=== PATIENT | male | born 1990 | race Caucasian/White ===

== ENCOUNTER 2016-12-05 16:06 | Outpatient (CLI) | payer OTHER, MEDICAID ==
--- NOTE | 2016-12-05 17:52 | XRAY Preliminary Report ---
Exam: XR Foot 3 View LT IMPRESSION: Soft tissue swelling. [facility] SITE ID: [id number]
--- NOTE | 2016-12-05 17:54 | XRAY Report ---
EXAM: LEFT FOOT RADIOGRAPHY EXAM DATE: 12/05/2016 04:47 PM. CLINICAL HISTORY: LT GREAT TOE PAIN W/SWELLING,ANTOLGIC GAIT. COMPARISON: 06/30/2015. TECHNIQUE: 3 views. FINDINGS: Bones: Normal. No fractures or bone lesions. Joints: Mild hallux valgus. Joint spaces well-preserved. No erosions. Soft Tissues: Mild soft tissue swelling. IMPRESSION: Soft tissue swelling. [facility] Referring Provider Line: [phone] SITE ID: [id number]
== END 2016-12-05 16:07 | disposition home or self-care (01) ==
LOC: DI 16:06
PROVIDERS: ATTEND Emergency Medicine
DX: M79.89 Other specified soft tissue disorders (principal)

== ENCOUNTER 2019-08-10 08:20 | Emergency (ER) | payer MEDICAID ==
[2019-08-10 08:29] VITALS: BP 155/71
[2019-08-10] MEDS ORDERED: BUFFERED LIDOCAINE 10 ML SYRINGE SUBQ STA (08:38)
--- NOTE | 2019-08-10 08:41 | ED Physician Documentation ---
PD HPI SKIN - Stated complaint Stated Complaint: LT LEG PX - Chief complaint Chief Complaint: Wound - History obtained from History obtained from: Patient - Additional information Additional information: Patient comes emergency department complaining of a lesion on his left lateral thigh. He states that this is been there for approximately the last 6 days and that he has been trying to hot pack and get it to drain on its own, but it just has not gone away. Patient has not yet been on antibiotics. He states the area of redness is grown slightly. No fevers. He has had mild drainage from the ar ea that appears purulent. No other complaints at this time. Review of Systems Ten Systems: 10 systems reviewed and negative Constitutional: reports: Reviewed and negative Eyes: reports: Reviewed and negative Ears: reports: Reviewed and negative Nose: reports: Reviewed and negative Throat: reports: Reviewed and negative Cardiac: reports: Reviewed and negative Respiratory: reports: Reviewed and negative GI: reports: Reviewed and negative : reports: Reviewed and negative Skin: reports: Other (Infected appearing area on patient's left thigh, possible abscess.) Musculoskeletal: reports: Reviewed and negative Neurologic: reports: Reviewed and negative Psychiatric: reports: Reviewed and negative Endocrine: reports: Reviewed and negative Immunocompromised: reports: Reviewed and negative PD PAST MEDICAL HISTORY - Past Medical History Cardiovascular: None Respiratory: None Endocrine/Autoimmune: None GI: Ulcers, Diverticulitis Psych: Depression, Anxiety Musculoskeletal: None - Past Surgical History Past Surgical History: Yes General: Appendectomy - Present Medications Home Medications: Ambulatory Orders Medication Instructions Recorded Confirmed Hydrocortisone Acetate [Anucort-Hc] 25 mg RC BID PRN #20 supp.rect 08/25/15 Hydrocodone/Acetaminophen 1 - 2 each PO Q6H PRN #14 tablet 01/16/16 [Hydrocodon-Acetaminophen 5-325] Lidocaine Patch 5% [Lidoderm Patch] 1 patch TOP DAILY PRN #10 patch 01/16/16 Sulfamethox/Trimeth 800/160 1 each PO BID #14 tablet 08/10/19 [Bactrim Ds 800/160] - Allergies Allergies/Adverse Reactions: Allergies Allergy/AdvReac Type Severity Reaction Status Date / Time No Known Drug Allergies Allergy Verified 08/10/19 08:28 - Social History Does the pt smoke?: Yes Smoking Status: Current every day smoker Does the pt drink ETOH?: Yes Does the pt have substance abuse?: Yes - Immunizations Immunizations are current?: Yes Immunizations: No immun - POLST Patient has POLST: No PD ED PE NORMAL - General General: Alert and oriented X 3, No acute distress, Well developed/nourished - HEENT HEENT: Atraumatic, PERRL, EOMI, Moist mucous membranes - Neck Neck: Supple, no meningeal sign - Respiratory Respiratory: No respiratory distress - Derm Derm: Other (Patient has an approximately 4 cm diameter area of redness on his left mid lateral thigh. There is mild edema and moderate induration associated. Patient has an area of skin breakage at the apex, from which can be expressed a thick, hemo-purulent fluid.) - Extremities Extremities: No deformity - Neuro Neuro: Alert and oriented X 3 - Psych Psych: Normal mood, Normal affect Results - Vitals Vitals: Oxygen O2 Source Room air Procedures - Abscess I&D (location) R thigh Preparation: Chlorhexadine, Lidocaine 1%, With epi Incision: Incised with scalpel, Purulent drainage (small), Irrigated, Packed Other: Pt tolerated well, Dressing applied, Antibiotic prescribed PD MEDICAL DECISION MAKING - ED course Complexity details: considered differential, d/w patient ED course: I&D performed, as above. We have discussed wound care at home, as well as the need for wound check and packing removal/change in 2 days, as well as the usual indications for return. Departure - Departure Disposition: 01 Home, Self Care Clinical Impression: Abscess Condition: Stable Instructions: ED Abscess IandD Prescriptions: Sulfamethox/Trimeth 800/160 [Bactrim Ds 800/160] 1 each PO BID #14 tablet Comments: Your wound is been drained and packed today. Please take the antibiotics as directed, until gone. The packing should be removed in 2 days, and will need to be replaced if the wound edges do not stay apart on their own. Otherwise, at that time, the wound may be left open and unpacked. However, you should put a breathable dressing on the wound until the wound dries and scabs over. Discharge Date/Time: 08/10/19 09:23
[2019-08-10] MEDS ORDERED: SULFAMETH/TRIMETH DS 800/160 MG TABLET PO STA (09:04)
== END 2019-08-10 09:23 | disposition home or self-care (01) ==
LOC: ED 08:20
DX: L02.416 Cutaneous abscess of left lower limb (principal); F17.200 Nicotine dependence, unspecified, uncomplicated
CPT/HCPCS: 10061; 99282; 99284; A9270

== ENCOUNTER 2020-07-08 12:05 | Emergency (ER) | payer MEDICAID ==
[2020-07-08 12:28] VITALS: BP 159/82
--- OUTSIDE RECORDS SUMMARY | 2020-07-08 12:30 | EXTERNAL MEDICAL SUMMARY RPT | Continuity of Care Document ---
:1990 Demographics Phone Unavailable Preferred Language Unknown Marital Status Unknown Shinto Affiliation Unknown Race Unknown Ethnic Group Unknown Author Organization [facility] Address [address] [phone] Phone Social History date description facility [phone]
--- NOTE | 2020-07-08 12:53 | XRAY Report ---
PROCEDURE: Finger(s) LT INDICATIONS: trauma TECHNIQUE: AP hand, 2 views of the second finger(s) acquired. COMPARISON: None FINDINGS: Bones: No fractures or dislocations. No suspicious bony lesions. Soft tissues: No suspicious soft tissue calcifications. IMPRESSION: No acute second finger fracture or dislocation. Reviewed by: Galo Rosa MD on 07/08/2020 12:52 PM PDT Approved by: Galo Rosa MD on 07/08/2020 12:52 PM PDT Station ID: [id number]
[2020-07-08] MEDS ORDERED: BUFFERED LIDOCAINE 10 ML SYRINGE SUBQ STA (13:06)
--- NOTE | 2020-07-08 13:09 | ED Physician Documentation ---
PD HPI UPPER EXT INJURY - Stated complaint Stated Complaint: L INDEX FINGER INJ - Chief complaint Chief Complaint: Trauma Ext - History obtained from History obtained from: Patient - Additonal information Additional information: Right-handed gentleman got his left second finger caught between 2 pieces of metal while working home yesterday with increasing pain overnight. Review of Systems Constitutional: reports: Reviewed and negative Throat: reports: Reviewed and negative Cardiac: reports: Reviewed and negative PD PAST MEDICAL HISTORY - Past Medical History Cardiovascular: None Respiratory: None Endocrine/Autoimmune: None GI: Ulcers, Diverticulitis Psych: Depression, Anxiety Musculoskeletal: None - Past Surgical History Past Surgical History: Yes General: Appendectomy - Present Medications Home Medications: Ambulatory Orders Medication Instructions Recorded Confirmed Hydrocortisone Acetate [Anucort-Hc] 25 mg RC BID PRN #20 supp.rect 08/25/15 Hydrocodone/Acetaminophen 1 - 2 each PO Q6H PRN #14 tablet 01/16/16 [Hydrocodon-Acetaminophen 5-325] Lidocaine Patch 5% [Lidoderm Patch] 1 patch TOP DAILY PRN #10 patch 01/16/16 Sulfamethox/Trimeth 800/160 1 each PO BID #14 tablet 08/10/19 [Bactrim Ds 800/160] - Allergies Allergies/Adverse Reactions: Allergies Allergy/AdvReac Type Severity Reaction Status Date / Time No Known Drug Allergies Allergy Verified 07/08/20 12:27 - Social History Does the pt smoke?: Yes Smoking Status: Current some day smoker Does the pt drink ETOH?: Yes Does the pt have substance abuse?: Yes - Immunizations Immunizations are current?: Yes Immunizations: No immun - POLST Patient has POLST: No PD ED PE NORMAL - Vitals Vital signs reviewed: Yes - General General: Alert and oriented X 3, No acute distress - HEENT HEENT: PERRL, EOMI - Extremities Extremities: Other (Tender at the tip of the left second finger with just greater than 50% subungual hematoma) - Neuro Neuro: Alert and oriented X 3, Normal speech Results - Vitals Vitals: Vital Signs - 24 hr 07/08/20 12:23 Temperature 36.0 C L Heart Rate 68 Respiratory 16 Rate Blood Pressure 159/82 H O2 Saturation 100 Oxygen O2 Source Room air - Rads (name of study) L 2nd finger Radiology: EMP read contemporaneously (no frx) Procedures - General procedure General procedure: After verbal informed consent a digital block was done in standard fashion of the left second finger with 2 mL of buffered lidocaine. After several minutes with excellent anesthesia, the proximal nail was trephinated using electrocautery with release of blood. Departure - Departure Disposition: 01 Home, Self Care Clinical Impression: Crushing injury of finger of left hand Subungual hematoma of digit of hand Qualifiers: Encounter type: initial encounter Qualified Code(s): S60.10XA - Contusion of unspecified finger with damage to nail, initial encounter Condition: Stable Record reviewed to determine appropriate education?: Yes Instructions: ED Hematoma Subungual
== END 2020-07-08 13:43 | disposition home or self-care (01) ==
LOC: ED 12:05
DX: S60.10XA Contusion of unspecified finger with damage to nail, initial encounter (principal); W23.1XXA Caught, crushed, jammed, or pinched between stationary objects, initial encounter; Y92.009 Unspecified place in unspecified non-institutional (private) residence as the place of occurrence of the external cause; F17.200 Nicotine dependence, unspecified, uncomplicated
CPT/HCPCS: 11740; 99282; 99283

== ENCOUNTER 2020-11-15 15:34 | Outpatient (CLI) | payer MEDICAID ==
--- NOTE | 2020-11-15 16:24 | XRAY Report ---
PROCEDURE: Knee 3 View LT INDICATIONS: SPRAIN OF L KNEE TECHNIQUE: 3 views of the left knee(s) were acquired. COMPARISON: None. FINDINGS: Bones: No fractures or dislocations. No suspicious bony lesions. Soft tissues: No joint effusion. No suspicious soft tissue calcifications. IMPRESSION: No left knee fracture or dislocation. No significant joint effusion. Reviewed by: Galo Rosa MD on 11/15/2020 4:22 PM PDT Approved by: Galo Rosa MD on 11/15/2020 4:22 PM PDT Station ID: [id number]
== END 2020-11-15 23:59 | disposition home or self-care (01) ==
LOC: DI.N 15:34
PROVIDERS: ATTEND Nurse Practitioner
DX: S83.92XA Sprain of unspecified site of left knee, initial encounter (principal)

== ENCOUNTER 2021-12-13 16:57 | Emergency (ER) | payer MEDICAID, OTHER ==
[2021-12-13] MEDS ORDERED: KETOROLAC 60 MG/2 ML VIAL IM STA (18:07)
[2021-12-13] MEDS ORDERED: CYCLOBENZAPRINE 10 MG TABLET PO STA (18:07)
[2021-12-13] MEDS ORDERED: DEXAMETHASONE 10 MG/ML VIAL PO STA (18:07)
[2021-12-13] MEDS ORDERED: CHERRY SYRUP 10 ML UDC PO ONE (18:07)
[2021-12-13] MEDS ORDERED: GABAPENTIN 100 MG CAPSULE PO STA (18:07)
--- NOTE | 2021-12-13 18:11 | ED Physician Documentation ---
PD HPI BACK PAIN - Stated complaint Stated Complaint: LOWER BACK PX - Chief complaint Chief Complaint: Back Pain - History obtained from History obtained from: Patient - History of Present Illness Pain level max: 8 Pain level now: 8 Location: Lower, Left Quality: Pain, Spasm, Similar to prior episodes Associated symptoms: No: Fever, Weakness, Numbness, Incontinent of urine, Unable to urinate, Hematuria, Incontinent of stool Improves with: Rest Worsened by: Movement - Additional information Additional information: Patient is a 31-year-old male who complains of low back pain. He states he was bending over today when he felt a pop in his low back. Since that time has had increasing pain. Worse with movement, better with rest. Has had similar symptoms previously. No loss of bowel or bladder control. Did not take anything for the pain. The pain is nonradiating. No numbness or tingling. Review of Systems Constitutional: denies: Fever, Chills Respiratory: denies: Cough GI: denies: Vomiting, Diarrhea : denies: Incontinent Skin: denies: Rash Musculoskeletal: denies: Neck pain Neurologic: denies: Focal weakness, Numbness PD PAST MEDICAL HISTORY - Past Medical History Cardiovascular: None Respiratory: None Endocrine/Autoimmune: None GI: Ulcers, Diverticulitis Psych: Depression, Anxiety Musculoskeletal: None - Past Surgical History Past Surgical History: Yes General: Appendectomy - Present Medications Home Medications: Ambulatory Orders Medication Instructions Recorded Confirmed Hydrocortisone Acetate [Anucort-Hc] 25 mg RC BID PRN #20 supp.rect 08/25/15 Hydrocodone/Acetaminophen 1 - 2 each PO Q6H PRN #14 tablet 01/16/16 [Hydrocodon-Acetaminophen 5-325] Lidocaine Patch 5% [Lidoderm Patch] 1 patch TOP DAILY PRN #10 patch 01/16/16 Sulfamethox/Trimeth 800/160 1 each PO BID #14 tablet 08/10/19 [Bactrim Ds 800/160] Cyclobenzaprine [Flexeril] 10 mg PO TID PRN #20 tablet 12/13/21 Gabapentin [Neurontin] 300 mg PO TID #30 cap 12/13/21 Meloxicam [Mobic] 7.5 mg PO BID PRN #20 tablet 12/13/21 - Allergies Allergies/Adverse Reactions: Allergies Allergy/AdvReac Type Severity Reaction Status Date / Time No Known Drug Allergies Allergy Verified 12/13/21 17:06 - Social History Does the pt smoke?: Yes Smoking Status: Current some day smoker Does the pt drink ETOH?: Yes Does the pt have substance abuse?: Yes - Immunizations Immunizations are current?: Yes Immunizations: No immun - POLST Patient has POLST: No PD ED PE NORMAL - Vitals Vital signs reviewed: Yes - General General: Alert and oriented X 3, No acute distress - HEENT HEENT: Moist mucous membranes - Neck Neck: Supple, no meningeal sign - Cardiac Cardiac: RRR - Respiratory Respiratory: No respiratory distress, Clear bilaterally - Abdomen Abdomen: Soft, Non tender, Non distended - Back Back: No spinal TTP, Other (No midline tenderness to palpation or percussion. paraspinal spasm left lower lumbar.) - Derm Derm: Warm and dry - Extremities Extremities: No edema - Neuro Neuro: Alert and oriented X 3, No motor deficit, No sensory deficit, Other (Normal bilateral lower extremity patellar and ankle jerk reflexes. Normal great toe extension bilaterally. no saddle anesthesia) - Psych Psych: Normal mood, Normal affect Results - Vitals Vitals: Vital Signs - 24 hr 12/13/21 12/13/21 17:02 19:24 Temperature 36.1 C L Heart Rate 102 H 80 Respiratory 16 18 Rate Blood Pressure 129/78 123/66 O2 Saturation 100 100 Oxygen O2 Source Room air PD MEDICAL DECISION MAKING - ED course Complexity details: re-evaluated patient, considered differential (No cauda equina, no spinal epidural abscess, no fracture, no aortic dissection or evidence of aneursym rupture), d/w patient ED course: 31-year-old male with what appears to be musculoskeletal back pain. Likely nerve irritation causing spasm. We will place on anti-inflammatories and muscle relaxants for home. He wants to avoid narcotic pain medication. No evidence of cauda equina, epidural abscess, fracture. We will hold off on neuroimaging at this time. No indication for emergent imaging. Patient is ambulating well. No focal neurological deficits. Patient counseled regarding signs and symptoms for which I believe and urgent re-evaluation would be necessary. Patient with good understanding of and agreement to plan and is comfortable going home at this time This document was made in part using voice recognition software. While efforts are made to proofread this document, sound alike and grammatical errors may occur. Departure - Departure Disposition: Home, Self Care Clinical Impression: Back spasm Condition: Good Instructions: ED Spasm Back No Trauma Follow-Up: [facility] [place] [Provider Group] [facility] [place] [Provider Group] Primary[facility]Walk In [place] [Provider Group] Walk In [facility] [Provider Group] Prescriptions: Cyclobenzaprine [Flexeril] 10 mg PO TID PRN #20 tablet PRN Reason: Spasms Meloxicam [Mobic] 7.5 mg PO BID PRN #20 tablet PRN Reason: Pain Gabapentin [Neurontin] 300 mg PO TID #30 cap Comments: Your prescriptions were sent to [facility] in [place]. Please follow-up with your doctor for further care. Continue to gently stretch your back at home. Return if you worsen. Forms: Activity restrictions Discharge Date/Time: 12/13/21 19:25
[2021-12-13 19:25] VITALS: BP 123/66
== END 2021-12-13 19:25 | disposition home or self-care (01) ==
LOC: ED 16:57
DX: M62.830 Muscle spasm of back (principal); F17.200 Nicotine dependence, unspecified, uncomplicated
CPT/HCPCS: 96372; 99282; 99283; A9270

== ENCOUNTER 2022-04-23 16:00 | Outpatient (CLI) | payer MEDICAID ==
[2022-04-23 21:48] LABS: BASOPHILS # (AUTO) 0.1 10^3/uL (0.0-0.1); BASOPHILS % (AUTO) 0.5 %; EOSINOPHILS # (AUTO) 0.2 10^3/uL (0.0-0.7); EOSINOPHILS % (AUTO) 2.1 %; HCT - HEMATOCRIT 44.1 % (42.0-52.0); HGB - HEMOGLOBIN 14.6 g/dL (14.0-18.0); LYMPHOCYTES # (AUTO) 3.6 10^3/uL (1.5-3.5); LYMPHOCYTES % (AUTO) 35.9 %; MEAN CORPUSCULAR HEMOGLOBIN 28.8 pg (27.0-31.0); MEAN CORPUSCULAR HGB CONC 33.1 g/dL (32.0-36.0); MEAN PLATELET VOLUME 9.8 fL (7.4-11.4); MONOCYTES # (AUTO) 0.7 10^3/uL (0.0-1.0); MONOCYTES % (AUTO) 6.5 %; NEUTROPHILS # (AUTO) 5.4 10^3/uL (1.5-6.6); NEUTROPHILS % (AUTO) 54.7 %; PLT - PLATELET COUNT 307 10^3/uL (130-450); RED BLOOD COUNT 5.07 10^6/uL (4.70-6.10)
[2022-04-24 17:38] LABS: ALBUMIN 4.4 g/dL (3.2-5.5); ALBUMIN/GLOBULIN RATIO 1.6 (1.0-2.2); BILIRUBIN,TOTAL 0.5 mg/dL (0.2-1.0); CALCIUM 9.5 mg/dL (8.5-10.3); CREATININE 0.8 mg/dL (0.6-1.2); POTASSIUM 3.7 mmol/L (3.5-5.0); TOTAL PROTEIN 7.1 g/dL (6.7-8.2)
== END 2022-04-23 16:30 | disposition home or self-care (01) ==
LOC: LAB.N 16:00
PROVIDERS: ATTEND Physician Assistant Medical
DX: R60.0 Localized edema (principal)
CPT/HCPCS: 36415; 80053; 83690; 83880; 84443; 85025

== ENCOUNTER 2022-06-12 18:01 | Outpatient (CLI) | payer BC ==
--- NOTE | 2022-06-13 09:50 | Ultrasound Report ---
PROCEDURE: Duplex Ext Veins Right INDICATIONS: EDEMA TECHNIQUE: Real-time imaging, as well as color and pulse Doppler interrogation, were performed of the lower extr emity deep veins from the inguinal ligament to the popliteal fossa. COMPARISON: None. FINDINGS: The deep veins are normally compressible, and free of intraluminal thrombus. Color and pu lse Doppler demonstrate normal phasic intraluminal flow. There is normal augmentation response to di stal compression maneuver. Simmons's cyst is present measuring 4.7 x 7.5 cm. Varicose veins are noted. IMPRESSION: No deep venous cirrhosis. Simmons's cyst is present. Reviewed by: Laine Segovia MD on 06/13/2022 9:49 AM PDT Approved by: Laine Segovia MD on 06/13/2022 9:49 AM PDT Station ID: [id number]
== END 2022-06-12 18:02 | disposition home or self-care (01) ==
LOC: DI 18:01
PROVIDERS: ATTEND Nurse Practitioner
DX: R60.0 Localized edema (principal); M71.21 Synovial cyst of popliteal space [Baker], right knee

== ENCOUNTER 2022-07-23 07:12 | Outpatient (CLI) | payer BC ==
--- NOTE | 2022-07-23 09:27 | Ultrasound Report ---
PROCEDURE: Abdomen Complete INDICATIONS: DRUG ABUSE IN REMISSION, PEDAL EDEMA TECHNIQUE: Real-time scanning was performed of the abdominal and retroperitoneal organs, with image documentatio n. COMPARISON: None. FINDINGS: Liver: Increased liver echogenicity, commonly mild hepatic steatosis. Gallbladder: Unremarkable. Biliary ducts: Intrahepatic bile ducts are non-dilated. Extrahepatic bile duct caliber measures mm. Normal is 6-7 mm or less in diameter, or 10 mm or less post-cholecystectomy. Pancreas: Not well visualized due to overlying bowel gas. Spleen: Spleen is normal in size and homogeneous in echotexture. Kidneys: Kidneys are normal in size and echotexture. Right kidney measures 12.1 cm long; left kidne y measures 12.6 cm long. No hydronephrosis or nephrolithiasis. No solid masses. No complex renal cy stic lesions which require follow-up. Aorta: Visualized aorta is normal in caliber at less than 3 cm. Iliacs: Proximal common iliac arteries are normal in caliber at less than 2.5 cm. IVC: Intrahepatic inferior vena cava is patent. Miscellaneous: No free abdominal fluid. IMPRESSION: No acute abnormality. Mild hepatic steatosis. Reviewed by: Hunter Tian on 07/23/2022 9:25 AM PDT Approved by: Hunter Tian on 07/23/2022 9:25 AM PDT Station ID: [id number]
== END 2022-07-23 07:13 | disposition home or self-care (01) ==
LOC: DI 07:12
PROVIDERS: ATTEND Nurse Practitioner
DX: R60.0 Localized edema (principal); F19.11 Other psychoactive substance abuse, in remission

== ENCOUNTER 2022-09-04 16:21 | Outpatient (CLI) | payer BC ==
[2022-09-06 16:08] LABS: ANTINUCLEAR ANTIBODIES IFA Negative (.)
== END 2022-09-04 16:22 | disposition home or self-care (01) ==
LOC: LAB 16:21
PROVIDERS: ATTEND Nurse Practitioner
DX: R06.02 Shortness of breath (principal)
CPT/HCPCS: 36415; 85379; 85651; 86038; 86140